=== PATIENT | female | born 1975 | race African-American/Black ===

== ENCOUNTER → 2016-07-08 | Outpatient (CLI) | payer OTHER, MEDICARE ==
--- NOTE | 2016-07-08 09:12 | WOMENS IMAGING REPORT ---
EXAM DESCRIPTION: BILAT SCREENING MAMMO W/CAD COMPLETED DATE/TIME: 07/08/2016 8:48 am REASON FOR STUDY: Z12.31 ROUTINE SCREENING MAMMO Z12.31 ENCNTR SCREEN MAMMOGRAM FOR MALIGNANT NEOPL ASM OF GIL[place]ERTO COMPARISON: 06/27/2014 TECHNIQUE: Standard craniocaudal and mediolateral oblique views of each breast recorded using [employer] l acquisition. LIMITATIONS: None. FINDINGS: No masses, calcifications or architectural distortion. No areas of suspicion. Read with the assistance of CAD. .[facility] - R2 Cenova Version 1.3 .[facility] - R2 Cenova Version 1.3 .[facility] - R2 Cenova Version 2.4 .[facility] - R2 Cenova Version 2.4 .[facility] - R2 Liquor Tester Version 9.2 BREAST DENSITY: c. The breasts are heterogeneously dense, which may obscure small masses. BIRAD: 1 NEGATIVE RECOMMENDATION: ROUTINE SCREENING COMMENT: PATIENT NOTIFIED BY LETTER. The [employer] recommends an annual screening mammogram for women aged 40 years or over. Each patient will receive a reminder prior to the anniversary date of her mammogram. The [employer] (A[employer]) has developed recommendations for screening MRI of the breast s in certain patient populations, to be used in conjunction with mammography. Breast MRI surveillanc e may be appropriate for women with more than 20% lifetime risk of developing breast cancer as deter mined by genetic testing, significant family history of the disease, or history of mantle radiation f or Hodgkins Disease. ACR Practice Guidelines 2008. TECHNICAL DOCUMENTATION: FINDING NUMBER: (1) ASSESSMENT: (1) JOB ID: [id number] [employer]- All Rights Reserved
== END ==
LOC: WI 08:24
PROVIDERS: ATTEND Nurse Practitioner Family
DX: Z12.31 Encounter for screening mammogram for malignant neoplasm of breast (principal)
CPT/HCPCS: 77067; G0202

== ENCOUNTER → 2016-12-16 | Outpatient (CLI) | payer OTHER, MEDICARE ==
[2016-12-16 11:04] LABS: HEMATOCRIT 36.6 % (36.0-47.0); HEMOGLOBIN 11.2 g/dL (12.0-15.5); MEAN CORPUSCULAR HEMOGLOBIN 23.3 pg (27.0-33.4); MEAN CORPUSCULAR HGB CONC 30.7 g/dL (32.0-36.0); MEAN CORPUSCULAR VOLUME 76 fl (80-97); RED BLOOD COUNT 4.81 10^6/uL (3.72-5.28); RED CELL DISTRIBUTION WIDTH 16.3 % (11.5-14.0); WHITE BLOOD COUNT 3.2 10^3/uL (4.0-10.5)
[2016-12-16 11:58] LABS: THYROID STIMULATING HORMONE 1.77 uIU/mL (0.47-4.68)
== END ==
LOC: OD 10:06
PROVIDERS: ATTEND Internal Medicine Cardiovascular Disease
DX: R00.0 Tachycardia, unspecified (principal)
CPT/HCPCS: 36415; 83735; 84439; 84443; 85027

== ENCOUNTER 2017-05-30 20:11 | Emergency (ER) | payer OTHER, MEDICARE ==
[2017-05-30] MEDS ORDERED: ASPIRIN 81 MG TABLET, CHEWABLE PO ONE (20:12)
--- NOTE | 2017-05-30 21:14 | RADIOLOGY REPORT (SQ) ---
EXAM DESCRIPTION: CHEST SINGLE VIEW COMPLETED DATE/TIME: 05/30/2017 8:46 pm REASON FOR STUDY: cp COMPARISON: 06/15/2014. EXAM PARAMETERS: NUMBER OF VIEWS: One view. TECHNIQUE: Single frontal radiographic view of the chest acquired. RADIATION DOSE: NA LIMITATIONS: None. FINDINGS: LUNGS AND PLEURA: No opacities, masses or pneumothorax. No pleural effusion. MEDIASTINUM AND HILAR STRUCTURES: No masses. Contour normal. HEART AND VASCULAR STRUCTURES: Heart normal in size. Normal vasculature. BONES: No acute findings. HARDWARE: None in the chest. OTHER: No other significant finding. IMPRESSION: NO ACUTE RADIOGRAPHIC FINDING IN THE CHEST. TECHNICAL DOCUMENTATION: JOB ID: [id number] [employer]- All Rights Reserved
[2017-05-30 21:42] LABS: ABSOLUTE EOSINOPHILS # (AUTO) 0.1 10^3/uL (0.0-0.6); ABSOLUTE LYMPHOCYTES (AUTO) 1.9 10^3/uL (0.5-4.7); ABSOLUTE MONOCYTES (AUTO) 0.5 10^3/uL (0.1-1.4); ABSOLUTE NEUT (AUTO) 2.1 10^3/uL (1.7-8.2); BASOPHILS % (AUTO) 0.7 % (0-2); EOSINOPHILS % (AUTO) 1.7 % (0-6); HEMOGLOBIN 10.9 g/dL (12.0-15.5); HGB HCT DIFFERENCE -1.3; LYMPHOCYTES % (AUTO) 42.4 % (13-45); MEAN CORPUSCULAR HEMOGLOBIN 23.9 pg (27.0-33.4); MEAN CORPUSCULAR HGB CONC 32.1 g/dL (32.0-36.0); MEAN CORPUSCULAR VOLUME 74 fl (80-97); RED BLOOD COUNT 4.58 10^6/uL (3.72-5.28); RED CELL DISTRIBUTION WIDTH 15.5 % (11.5-14.0); SEGMENTED NEUTROPHILS % (AUTO) 45.2 % (42-78); WHITE BLOOD COUNT 4.6 10^3/uL (4.0-10.5)
[2017-05-30] MEDS ORDERED: KETOROLAC TROMETHAMINE INJ/PF 30 MG/1 ML SDV IV ONE (21:54)
[2017-05-30 21:57] LABS: ALANINE AMINOTRANSFERASE 34 U/L (9-52); ALBUMIN 4.1 g/dL (3.5-5.0); ALKALINE PHOSPHATASE 52 U/L (38-126); ANION GAP 10 (5-19); ASPARTATE AMINO TRANSFERASE 29 U/L (14-36); BILIRUBIN,DIRECT 0.1 mg/dL (0.0-0.4); BILIRUBIN,TOTAL 0.2 mg/dL (0.2-1.3); BLOOD UREA NITROGEN 10 mg/dL (7-20); CALCIUM 8.8 mg/dL (8.4-10.2); CARBON DIOXIDE 26 mmol/L (22-30); CHLORIDE 104 mmol/L (98-107); CREATINE KINASE 619 U/L (30-135); CREATININE RESULT 0.86 mg/dL (0.52-1.25); GLUCOSE 99 mg/dL (75-110); POTASSIUM 4.1 mmol/L (3.6-5.0); SODIUM 139.5 mmol/L (137-145); TOTAL PROTEIN 6.8 g/dL (6.3-8.2)
[2017-05-30 22:09] LABS: CREATINE KINASE MB 0.51 ng/mL (<4.55)
[2017-05-30 22:12] LABS: TROPONIN I < 0.012 ng/mL
[2017-05-30] MEDS ORDERED: RINGERS SOLUTION,LACTATED 1,000 ML IV ONE (22:26)
--- NOTE | 2017-05-30 22:29 | ER Document Report ---
ED General - General Chief Complaint: Chest Pain Stated Complaint: CHEST PAIN Time Seen by Provider: 05/30/17 21:54 Mode of Arrival: Ambulatory Information source: Patient, Relative TRAVEL OUTSIDE OF THE [place] IN LAST 30 DAYS: No - HPI Patient complains to provider of: chest pain Onset: Just prior to arrival Onset/Duration: Sudden Quality of pain: Sharp Severity: Moderate Context: Patient states she was at the mall shopping when she got a sharp chest pain in the center of her chest. She states she has no other symptoms with it. She has never had this before. Associated symptoms: None Exacerbated by: Denies Relieved by: Denies Similar symptoms previously: No Recently seen / treated by doctor: No - Related Data Allergies/Adverse Reactions: egg [Egg] Allergy (Verified 05/30/17 20:11) flu vaccine Allergy (Uncoded 05/30/17 20:11) Past Medical History - General Information source: Patient - Social History Smoking Status: Never Smoker Frequency of alcohol use: Social Drug Abuse: None Family History: Reviewed & Not Pertinent Patient has suicidal ideation: No Patient has homicidal ideation: No - Past Medical History Cardiac Medical History: Reports: None Pulmonary Medical History: Reports: Hx Bronchitis EENT Medical History: Reports: None Neurological Medical History: Reports: Other - Traumatic brain injury in [place] when she served in the [employer] Endocrine Medical History: Reports: None Renal/ Medical History: Reports: None. Denies: Hx Peritoneal Dialysis Malignancy Medical History: Reports: None GI Medical History: Reports: None Musculoskeltal Medical History: Reports None Skin Medical History: Reports None Psychiatric Medical History: Reports: None Traumatic Medical History: Reports: Hx Traumatic Brain Injury Infectious Medical History: Reports: None Past Surgical History: Reports: Hx Appendectomy - umbilical hernia repair, Hx Breast Surgery - benign breast tumor, Hx Section - Immunizations Hx Diphtheria, Pertussis, Tetanus Vaccination: Yes Review of Systems - Review of Systems Constitutional: No symptoms reported EENT: No symptoms reported Cardiovascular: See HPI Respiratory: No symptoms reported Gastrointestinal: No symptoms reported, See HPI Genitourinary: No symptoms reported Female Genitourinary: No symptoms reported Musculoskeletal: No symptoms reported Skin: No symptoms reported Hematologic/Lymphatic: No symptoms reported Neurological/Psychological: No symptoms reported Physical Exam - Vital signs Vitals: Temp Pulse Resp BP Pulse Ox 98.9 F 76 18 109/58 L 98 05/30/17 20:30 05/30/17 20:30 05/30/17 20:30 05/30/17 20:30 05/30/17 20:30 Interpretation: Normal - Notes Notes: PHYSICAL EXAMINATION: GENERAL: Well-appearing, well-nourished and in no acute distress. HEAD: Atraumatic, normocephalic. EYES: Pupils equal round and reactive to light, extraocular movements intact, conjunctiva are normal. ENT: Nares patent, oropharynx clear without exudates. Moist mucous membranes. NECK: Normal range of motion, supple without lymphadenopathy LUNGS: Breath sounds clear to auscultation bilaterally and equal. No wheezes rales or rhonchi. HEART: Regular rate and rhythm without murmurs. nonreproducible sharp pain in her left anterior chest. ABDOMEN: Soft, nontender, nondistended abdomen. No guarding, no rebound. No masses appreciated. Female : deferred Musculoskeletal: Normal range of motion, no pitting or edema. No cyanosis. NEUROLOGICAL: Cranial nerves grossly intact. Normal speech, normal gait. Normal sensory, motor exams PSYCH: Normal mood, normal affect. SKIN: Warm, Dry, normal turgor, no rashes or lesions noted. Course - Re-evaluation Re-evalutation: 05/30/17 22:57 Patient states she needs to leave because her daughter needs to go to sleep so she can go to school tomorrow. 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 I did tell the patient that normally we get 2 sets of cardiac enzymes however we were only able to get one because she wants to leave. She did verbalize understanding. I also went over CPK and that hers was slightly elevated. Patient does not take a statin. She does work out and last time she worked out was . I did explain with CPK was and that she should have it repeated in a week or 2 to make sure that it goes down. I told her make sure she was hydrating on her workout days as well as on her off days. Patient is to follow-up the primary medical doctor in the next day or 2. She is to return to the emergency department immediately if the chest pain returns, she has shortness of breath, fevers or any other concerns. - Vital Signs Vital signs: Temp Pulse Resp BP Pulse Ox 98.9 F 76 15 106/54 L 100 05/30/17 20:30 05/30/17 20:30 05/30/17 21:31 05/30/17 21:31 05/30/17 21:31 - Laboratory Result Diagrams: 05/30/17 21:25 05/30/17 21:25 Laboratory results interpreted by me: 05/30/17 05/30/17 21:25 21:25 Hgb 10.9 L Hct 34.0 L MCV 74 L MCH 23.9 L RDW 15.5 H Creatine Kinase 619 H - Diagnostic Test Radiology reviewed: Image reviewed, Reports reviewed Radiology results interpreted by me: 05/30/17 22:29 no acute findings CXR - EKG Interpretation by Me EKG shows normal: Sinus rhythm Rate: Normal Rhythm: NSR When compared to previous EKG there are: No significant change Discharge - Discharge Clinical Impression: Rhabdomyolysis, Chest pain Condition: Stable Instructions: Chest Pain of Unclear Cause ([facility]) Additional Instructions: Follow-up with your primary medical doctor in the next 1-2 days. Please return to the emergency department if you have any concerns. Your CPK or muscle enzyme was a little elevated today. Please have that repeated in the next week to make sure that it has returned to normal
[2017-05-30 23:02] VITALS: BP 104/54
--- NOTE | 2017-05-31 08:06 | EKG REPORT ---
SEVERITY:- NORMAL ECG - SINUS RHYTHM : Confirmed by: Michi Mars MD 31-May-2017 08:06:15
== END 2017-05-30 23:03 | disposition home or self-care (01) ==
LOC: ER 20:11
DX: M62.82 Rhabdomyolysis (principal); R07.9 Chest pain, unspecified; Z88.7 Allergy status to serum and vaccine; Z91.012 Allergy to eggs
CPT/HCPCS: 93005; 99285; 96374; 36415; 82553; 82550; 85025; 81025; 80053; 84484; 71010; 93010; J1885